=== PATIENT | male | born 1950 | race Caucasian/White ===

== ENCOUNTER 2024-07-18 09:00 | Inpatient (IN) | payer MEDICARE, OTHER ==
[2024-07-18] MEDS ORDERED: Bisacodyl 10 MG Supp RECTAL PRN (15:00)
[2024-07-18] MEDS ORDERED: Sennosides/Docusate Sodium 50-8.6 MG Tab PO PRN (15:00)
[2024-07-18] MEDS: oxyCODONE 5 MG Tab PO PRN ×2 (15:27→19:00)
[2024-07-18] MEDS: Methocarbamol 500 MG Tab PO PRN (15:28)
[2024-07-18] MEDS: Gabapentin 300 MG Cap PO SCH (15:31)
[2024-07-18] MEDS: Rivaroxaban 10 MG Tab PO SCH (17:27)
[2024-07-18] MEDS: Amoxicillin/Clavulanate K 875-125 MG Tab PO SCH (20:33)
[2024-07-18] MEDS: Calcium Carbonate 500 MG Tablet PO SCH (20:34)
[2024-07-18] MEDS: Finasteride 5 MG Tab PO SCH (20:34)
[2024-07-18] MEDS: traZODone 50 MG Tab PO SCH (20:34)
[2024-07-18] MEDS: Saccharomyces Boulardii (Probiotic) 250 MG Cap PO SCH (20:35)
[2024-07-18] MEDS: Tamsulosin 0.4 MG Cap.ER PO SCH (20:35)
[2024-07-18] MEDS: [UNRECOGNIZED DRUG - OTHER] TOP SCH (20:35)
[2024-07-19] MEDS: Prazosin 1 MG Cap PO SCH (08:32)
[2024-07-19] MEDS: Multivitamins with Iron/Calcium/Folic Acid/Minerals Tab PO SCH (08:32)
[2024-07-19] MEDS: Cholecalciferol (Vitamin D3) 25 MCG Tab PO SCH (08:32)
[2024-07-19] MEDS: Ferrous Sulfate 325 MG Tab PO SCH (08:35)
[2024-07-19] MEDS: fentaNYL 75 MCG/HR Transdermal Patch TRDERM SCH (08:35)
[2024-07-19] MEDS ORDERED: Ondansetron 4 MG/2 ML SDV IVPUSH PRN (11:27)
[2024-07-19] MEDS: Ondansetron 4 MG Tab.DIS PO ONE (11:39)
[2024-07-19] MEDS: Sennosides/Docusate Sodium 50-8.6 MG Tab PO SCH (13:51)
[2024-07-19] MEDS: Acetaminophen 325 MG Tab PO PRN (21:29)
[2024-07-20] MEDS: Polyethylene Glycol 3350 Powder 17 GM Packet PO PRN (09:36)
[2024-07-20] MEDS: [UNRECOGNIZED DRUG - OTHER] TOP PRN (10:00)
[2024-07-22] MEDS ORDERED: LORazepam 0.5 MG Tab PO PRN (16:19)
[2024-07-23] MEDS: Tamsulosin 0.4 MG Cap.ER PO SCH (09:23)
[2024-07-24] MEDS ORDERED: Iopamidol 755 Mg/ML 100 ML Bottle IV SCH (11:00)
[2024-07-24] MEDS: Iopamidol 755 Mg/ML 100 ML Bottle IV STA (12:30)
[2024-07-25] MEDS: Ondansetron 4 MG Tab.DIS PO PRN (07:31)
[2024-07-25] MEDS: fentaNYL 50 MCG/HR Transdermal Patch TRDERM SCH (09:12)
[2024-07-26] MEDS: Sennosides/Docusate Sodium 50-8.6 MG Tab PO PRN (20:35)
[2024-07-31] MEDS: fentaNYL 25 MCG/HR Transdermal Patch TRDERM SCH (09:49)
== END 2024-08-02 13:38 | disposition home or self-care (01) | DRG 948 ==
LOC: FB.MS 12:06
PROVIDERS: ADMIT Internal Medicine; ATTEND Internal Medicine
DX: R53.81 Other malaise (principal); W10.9XXD Fall (on) (from) unspecified stairs and steps, subsequent encounter; N40.0 Benign prostatic hyperplasia without lower urinary tract symptoms; I10 Essential (primary) hypertension; E66.9 Obesity, unspecified; J98.4 Other disorders of lung; G47.33 Obstructive sleep apnea (adult) (pediatric); Z90.49 Acquired absence of other specified parts of digestive tract; Z98.890 Other specified postprocedural states; Z79.01 Long term (current) use of anticoagulants; Z79.899 Other long term (current) drug therapy; S02.401D Maxillary fracture, unspecified side, subsequent encounter for fracture with routine healing; S72.401D Unspecified fracture of lower end of right femur, subsequent encounter for closed fracture with routine healing; Z87.81 Personal history of (healed) traumatic fracture; Z90.89 Acquired absence of other organs; Z98.84 Bariatric surgery status
CPT/HCPCS: 36415; 71275; 84484; 85379; 93005; 93010; 97110-GO; 97110-GP; 97116-GP; 97140-GO; 97161-GP; 97165-GO; 97530-GO; 97530-GP; 97535-GO; 99305; 99308; 99309; 99315; A9270-GY; Q0162; Q9967